=== PATIENT | female | born 1960 | race Caucasian/White ===

== ENCOUNTER 2020-11-18 09:03 | Emergency (ER) | payer OTHER ==
[2020-11-18] MEDS ORDERED: Fentanyl 100 MCG/2 ML VIAL ONE (09:20)
[2020-11-18] MEDS ORDERED: Iopamidol-370 76% 500 ML 1 ML ONE (12:42)
== END 2020-11-18 10:28 | disposition home or self-care (01) ==
LOC: ERS 09:03
DX: S20.212A Contusion of left front wall of thorax, initial encounter (principal); R91.1 Solitary pulmonary nodule; Z79.899 Other long term (current) drug therapy; V89.2XXA Person injured in unspecified motor-vehicle accident, traffic, initial encounter
CPT/HCPCS: 71260; 74177; 96374; J3010; Q9967

== ENCOUNTER 2022-06-17 09:13 | Outpatient (CLI) | payer BC | END 2022-06-17 09:14 | disposition home or self-care (01) | LOC: SCSMRI 09:13 | PROVIDERS: ATTEND Specialist | DX: M47.22 Other spondylosis with radiculopathy, cervical region (principal) | CPT/HCPCS: 72141 ==